=== PATIENT | female | born 1995 | race Caucasian/White ===

== ENCOUNTER 2021-06-12 21:11 | Emergency (ER) | payer OTHER ==
[~2021-06-12] VITALS: Ht 167.6 cm; Wt 63.6 kg
[2021-06-12] MEDS ORDERED: APRI 0.15 MG-0.1 TAB PO (21:13)
[2021-06-12] MEDS ORDERED: ZOLOFT 25MG25 MG PO (21:13)
[2021-06-12 21:14] VITALS: TEMP 98.7
[2021-06-12 22:56] VITALS: BP 103/60; PULSE 83
== END 2021-06-12 22:59 | disposition home or self-care (01) ==
LOC: COL.ER 21:11
DX: F12.929 Cannabis use, unspecified with intoxication, unspecified (principal)
CPT/HCPCS: J7030

== ENCOUNTER 2023-02-08 22:51 | Emergency (ER) | payer OTHER ==
[~2023-02-08] VITALS: Ht 170.2 cm; Wt 68.2 kg
[~2023-02-08 22:51] MED LIST: APRI 0.15 MG-0.1 TAB PO; ZOLOFT 25MG25 MG PO
[2023-02-08 23:05] VITALS: TEMP 98.5
[2023-02-08 23:35] LABS: BASO % 0.4 % (0.0-2.0); EOS # 0.2 K/mm3 (0.0-0.7); EOS % 2.6 % (0.0-4.0); GRAN # 5.2 K/mm3 (1.4-6.5); GRAN % 58.8 % (42.2-75.2); HEMATOCRIT 40.7 % (37.0-47.0); HEMOGLOBIN 13.6 g/dl (12.5-16.0); LYMPH # 2.8 K/mm3 (1.2-3.4); MEAN CELL VOLUME 89 fl (80.0-100.0); MEAN CORPUSCULAR HEMOGLOBIN 30 pg (27-31); MEAN CORPUSCULAR HGB CONC 33 g/dl (33.0-37.0); MEAN PLATELET VOLUME 8.6 fl (7.4-10.4); MONO # 0.6 K/mm3 (0.1-0.6); PLATELET COUNT 287 K/mm3 (130-400); REDCELL DISTRIBUTION WIDTH-CV 12.8 % (11.5-14.5)
[2023-02-08 23:37] LABS: COLLECTION METHOD CLEAN CATCH
[2023-02-08 23:53] LABS: ALANINE AMINOTRANSFERASE 9 U/L (0-55); ALBUMIN 3.8 gm/dL (3.5-5.0); ALKALINE PHOSPHATASE 61 U/L (40-150); ANION GAP 10 mmol/L (7-16); AST,SGOT 13 U/L (5-34); BILIRUBIN,TOTAL 0.3 mg/dL (0.2-1.2); BLOOD UREA NITROGEN 9 mg/dL (7-19); CALCIUM 9.2 mg/dL (8.4-10.2); CARBON DIOXIDE 23 mmol/L (22-29); CHLORIDE 108 mmol/L (98-107); CREATININE, serum 0.75 mg/dL (0.57-1.11); GLUCOSE 115 mg/dL (70-99); POTASSIUM 3.5 mmol/L (3.5-4.5); SODIUM 141 mmol/L (136-145); TOTAL PROTEIN 7.2 gm/dL (6.2-8.1)
[2023-02-08 23:55] LABS: AMORPHOUS CRYSTAL Present (NOT PRESENT); URINE APPEARANCE Clear (CLEAR/HAZY); URINE BACTERIA Occasional /hpf (NONE SEEN); URINE BLOOD Negative (NEGATIVE); URINE COLOR Yellow (YELLOW); URINE GLUCOSE Negative (NEGATIVE); URINE KETONE Negative (NEGATIVE); URINE NITRATE Negative (NEGATIVE); URINE PROTEIN(semi-quant) Negative (NEGATIVE); URINE RBC 0-2 /hpf (0-2); URINE UROBILINOGEN 0.2 E.U/dL (0.2-1.0)
[2023-02-09 00:02] LABS: TROPONIN-I < 0.010 ng/mL (0.00-0.033)
[2023-02-09 00:39] VITALS: BP 107/81; PULSE 69
== END 2023-02-09 00:39 | disposition home or self-care (01) ==
LOC: COL.ER 22:51
PROVIDERS: Emergency Medicine
DX: R00.2 Palpitations (principal)